=== PATIENT | male | born 1960 | race Asian ===

== ENCOUNTER 2017-11-18 14:14 | Emergency (ER) | payer OTHER ==
[~2017-11-18] VITALS: Ht 162.6 cm; Wt 99.8 kg
[~2017-11-18 14:14] MED LIST: ASA LO-DOSE81 MG PO; DEPO-PROVER400 MG/ML IM; DIVALPROEX500 M1 PO; DOCU100C10 PO; FISH OIL1000 M1 PO; FURO20TA67 PO; LACTSYP31 PO; LAMICTAL25 MG PO; LORA1TAB17 PO; PHENOBARB32.4 MG PO; POTA20TA4 PO; RISPERDAL3 MG PO
[2017-11-18 14:50] LABS: PLATELET COUNT 205 K/uL (142-355)
[2017-11-18 15:01] LABS: POTASSIUM 4.3 mmol/L (3.6-5.2)
[2017-11-18 15:20] VITALS: BP 151/84; TEMP 98
[2017-11-18] MEDS ORDERED: RISP50IN IM (16:27)
[2017-11-18] MEDS ORDERED: FINGERSTIX (16:36)
[2017-11-18] MEDS ORDERED: HUMALOG KWI100 MG/ML SC (16:37)
[2017-11-18] MEDS ORDERED: DIVA500T2 PO (16:39)
[2017-11-18] MEDS ORDERED: LAMICTAL25 MG PO (16:40)
[2017-11-18] MEDS ORDERED: PROMOD PO (16:42)
[2017-11-18] MEDS ORDERED: LAXATIVE15 MG PO (16:45)
[2017-11-18] MEDS ORDERED: LACTSYP31 PO (16:46)
[2017-11-18] MEDS ORDERED: TRILEPTAL300 MG PO (16:47)
[2017-11-25] MEDS ORDERED: QUET25TA2 PO (10:46)
[2017-11-25] MEDS ORDERED: LAMO100T PO (10:46)
== END 2017-11-18 15:20 | disposition other institution (70) ==
LOC: ED 14:14
PROVIDERS: Family Medicine
DX: F20.89 Other schizophrenia (principal); F60.3 Borderline personality disorder; Z04.6 Encounter for general psychiatric examination, requested by authority
CPT/HCPCS: 36415; 80053; 85027; 93005; 99285